=== PATIENT | female | born 1970 | race Caucasian/White ===

== ENCOUNTER 2018-10-14 15:20 | Inpatient (IN) | payer MEDICAID ==
[~2018-10-14] VITALS: Ht 157.5 cm; Wt 63.5 kg
[2018-10-14 15:21] VITALS: BP 200/130
[2018-10-14] MEDS ORDERED: MORPHINE SULFATE 4 MG/ML SYR IVP ONE (15:50)
[2018-10-14] MEDS ORDERED: ONDANSETRON 4 MG/2 ML VIAL IVP ONE (15:50)
[2018-10-14] MEDS ORDERED: NACL 0.9% 1,000 ML IV ONE (15:50)
[2018-10-14 15:54] LABS: BASOPHILS % (AUTO) 0.4 % (0.0-2.0); EOSINOPHILS # (AUTO) 0.2 K/uL (0-0.4); EOSINOPHILS % (AUTO) 2.4 % (0.0-4.0); HEMATOCRIT 44.3 % (36-48); HEMOGLOBIN 14.8 g/dL (12.0-16.0); LYMPHOCYTES # (AUTO) 2.7 K/uL (2.5-16.5); LYMPHOCYTES % (AUTO) 38.5 % (20.5-51.1); MEAN CORPUSCULAR HEMOGLOBIN 27 pg (27-31); MEAN CORPUSCULAR HGB CONC 33 g/dL (33-37); MEAN CORPUSCULAR VOLUME 81.9 fL (80-94); MONOCYTES # (AUTO) 0.5 K/uL (0.8-1.0); MONOCYTES % (AUTO) 6.6 % (1.7-9.3); NEUTROPHILS # (AUTO) 3.7 K/uL (1.8-7.7); NEUTROPHILS % (AUTO) 52.1 % (42.2-75.2); PLATELET COUNT (AUTO) 220 K/uL (140-450); RED BLOOD CELL COUNT(AUTO) 5.41 MIL/uL (4.20-5.40); WHITE BLOOD COUNT (AUTO) 7.1 K/uL (4.8-10.8)
--- NOTE | 2018-10-14 16:00 | NUR ---
48/F BIBA FROM HOME C/O POSSIBLE SYNCOPE, PT DOES NOT REMEMBER WHAT HAD HAPPENED TO HER. SHE WAS SEATED ON SOFA WHEN BECAME FAINT DIZZY.RIGHT UPPER WISDOM TOOTH REMOVED 2 DAYS AGO. HX--DENIES. DENIES N/V/D; SKIN IS PINK/WARM/DRY; AAOX4 WITH EVEN AND STEADY GAIT; LUNGS CLEAR BL. PT DENIES ANY FEVER, CP, SOB, OR COUGH AT THIS TIME; PATIENT STATES PAIN OF 0/10 AT THIS TIME. PATIENT POSITIONED FOR COMFORT; HOB ELEVATED; BEDRAILS UP X2; BED DOWN. ER MD MADE AWARE OF PT STATUS.
--- NOTE | 2018-10-14 16:12 | NUR ---
DAUGHTER AT BEDSIDE.
[2018-10-14 16:14] LABS: ALBUMIN 3.3 g/dL (3.4-5.0); ANION GAP 10.4 (8-16); CARBON DIOXIDE 27.9 mmol/L (21-32); CREATININE 0.8 mg/dL (0.6-1.3); POTASSIUM 3.3 mmol/L (3.5-5.1); TOTAL BILIRUBIN 0.3 mg/dL (0.0-1.0)
[2018-10-14 16:31] LABS: PROTHROMBIN TIME 9.4 secs (10.8-13.4)
[2018-10-14 16:51] LABS: APPEARANCE,URINE CLEAR (CLEAR); BILIRUBIN,URINE NEGATIVE (NEGATIVE); BLOOD, URINE 1+ (NEGATIVE); COLOR,URINE YELLOW (YELLOW); LEUKOCYTE ESTERASE ,URINE NEGATIVE (NEGATIVE); NITRITE, URINE NEGATIVE (NEGATIVE); PH,URINE 6.5 (5.0-9.0); UGLUCOSE 3+ (NEGATIVE)
[2018-10-14 17:05] LABS: RBC,URINE NONE SEEN /HPF (0-5); WBC,URINE NONE SEEN /HPF (0-5)
[2018-10-14] MEDS ORDERED: NACL 0.9% 500 ML IV ONE (17:25)
[2018-10-14] MEDS ORDERED: ONDANSETRON 4 MG/2 ML VIAL IM/IVP PRN (17:55)
[2018-10-14] MEDS ORDERED: KETOROLAC 15 MG/ML VIAL IVP PRN (17:55)
[2018-10-14] MEDS ORDERED: HYDROcodone/APAP 5/325 MG 1 TAB TAB PO PRN (17:55)
[2018-10-14] MEDS ORDERED: ACETAMINOPHEN 325 MG TAB PO PRN (17:55)
[2018-10-14] MEDS ORDERED: DEXTROSE 50% 50 ML SYR IVP PRN (17:55)
[2018-10-14] MEDS ORDERED: DOCUSATE SODIUM 100 MG GELCAP PO PRN (17:55)
--- NOTE | 2018-10-14 18:07 | NUR ---
Patient appears to be resting comfortably in bed. BP 175/113, P 1000. Respirations even and unlabored. NOTIFIED DR RODRIGUEZ. WILL CONTINUE TO MONITOR.
[2018-10-14] MEDS ORDERED: LABETALOL 100 MG/20 ML VIAL IVP ONE (18:10)
--- NOTE | 2018-10-14 18:56 | NUR ---
BP 159/106; HOLD TRANDATED PER DR RODRIGUEZ ORDERED.
--- NOTE | 2018-10-14 19:15 | NUR ---
Pt report given to JOSÉ MANUEL UMAÑA. Transfer of care at this time.
[2018-10-14 19:23] LABS: MAGNESIUM 1.8 mg/dL (1.8-2.4); THYROID STIMULATING HORMONE 2.36 uIU/mL (0.34-3.74)
[2018-10-14 19:25] LABS: BARBITURATE, URINE NEG. ng/ml (NEG <=200); BENZODIAZEPINE, URINE NEG. ng/mL (NEG <=200); CANNABINOID, URINE NEG. ng/mL (NEG <=50); COCAINE, URINE NEG. ng/mL (NEG <=300); OPIATE, URINE NEG. ng/mL (NEG <=2000); PHENCYCLIDINE SCREEN,URINE NEG. ng/mL (NEG <=25)
[2018-10-14 19:30] VITALS: BP 177/106
--- NOTE | 2018-10-14 19:30 | NUR ---
ADMITTED THIS 48 YEAR OLD FEMALE FROM ER PER CAROLYN WITH CC OF SYNCOPE, AMBULATED TO BED WITH STEADY GAIT, SLIGHT DIZZINESS NOTED, ASSESSMENT DONE, VITAL SIGNS TAKEN, BP ELEVATED, WILL NOTIFY DR SALDIVAR, ANISH4, ITALIAN SPEAKING ONLY, DAUGHTER AT BEDSIDE PREFER TO TRANSLATE, DENIES ANY PAIN AND NO SOB NOTED, ORIENTED TO ROOM AND CALL LIGHT, SAFETY MEASURES IN PLACE, CALL LIGHT WITHIN REACH.
[2018-10-14] MEDS: LABETALOL 20 MG/4 ML VIAL IVP SCH (20:30)
[2018-10-14] MEDS ORDERED: LABETALOL 100 MG/20 ML VIAL ONE (20:31)
[2018-10-14] MEDS: INSULIN LISPRO SLIDING SCALE 100 UNITS/ML VIAL SUBQ PRN (20:37)
[2018-10-14] MEDS: NACL 0.9% 1,000 ML IV SCH (20:37)
[2018-10-14] MEDS: BLOOD GLUCOSE MONITORING 1 DEV DEV FS SCH (20:38)
--- NOTE | 2018-10-14 20:39 | NUR ---
BP CHECKED-153/96, HR-91, DR SALDIVAR MADE AWARE, STATED TO HOLD LABETALOL AT THIS TIME, BLOOD SUGAR CHECKED WITH 276 RESULT, COVERAGE GIVEN, SNACK PROVIDED, ALL NEEDS ATTENDED.
[2018-10-14 20:40] VITALS: BP 153/96
[2018-10-14] MEDS ORDERED: POTASSIUM CHLORIDE 10 MEQ TABER PO SCH (21:30)
[2018-10-14] MEDS ORDERED: INFLUENZA VIRUS VACCINE QUAD 0.5 ML SYR IMVAC PRN (21:50)
[2018-10-15] VITALS (7 sets, daily range): BP systolic 128–174; BP diastolic 71–99
--- NOTE | 2018-10-15 | NUR ---
PT SLEEPING, EASILY AROUSABLE, VITAL SIGNS TAKEN, BP SLIGHTLY ELEVATED BUT TRENDING DOWN, DENIES PAIN, IVF INFUSING WELL, CONTINUE TO MONITOR CLOSELY.
--- NOTE | 2018-10-15 02:22 | NUR ---
PT AMBULATED TO BR WITH STEADY GAIT, VOIDED FREELY, DENIES DIZZINESS, MONITORED CLOSELY.
[2018-10-15] MEDS: NACL 0.9% 1,000 ML IV SCH ×2 (05:09→15:09)
[2018-10-15] MEDS: INSULIN LISPRO SLIDING SCALE 100 UNITS/ML VIAL SUBQ PRN ×4 (05:36→21:55)
--- NOTE | 2018-10-15 05:40 | NUR ---
BLOOD SUGAR CHECKED WITH 229 RESULT, COVERAGE GIVEN, NO DISTRESS NOTED, IVF INFUSING WELL, MONITORED CLOSELY.
[2018-10-15] MEDS: BLOOD GLUCOSE MONITORING 1 DEV DEV FS SCH ×4 (06:37→21:53)
--- NOTE | 2018-10-15 07:10 | NUR ---
PT SLEEPING, NO SIGNS OF DISTRESS, REPORT GIVEN TO LEEROY DUBOSE FOR CONTINUITY OF CARE.
--- NOTE | 2018-10-15 07:14 | NUR ---
RECEIVED BEDSIDE REPORT FROM PEDIATRIC OPHTHALMOLOGIST NURSE. PATIENT AAOX4. PATIENT ON ROOM AIR, NO SIGNS OF DISTRESS NOTED. PATIENT AMBULATORY AND CONTINENT. PATIENT ON TELE MONITOR. PATIENT ON STANDARD ISO. IV ON R AC 20 G INFUSING NS AT 100. IV CLEAN DRY AND INTACT. SKIN INTACT. BED IN LOW POSITION, CALL LIGHT WITHIN REACH. WILL CONTINUE TO MONITOR. DAUGHTER AT BEDSIDE.
[2018-10-15 07:22] LABS: BASOPHILS # (AUTO) 0.1 K/uL (0.00-0.22); BASOPHILS % (AUTO) 0.8 % (0.0-2.0); EOSINOPHILS # (AUTO) 0.2 K/uL (0-0.4); EOSINOPHILS % (AUTO) 3.5 % (0.0-4.0); HEMATOCRIT 40.1 % (36-48); HEMOGLOBIN 13.4 g/dL (12.0-16.0); LYMPHOCYTES # (AUTO) 2.6 K/uL (2.5-16.5); LYMPHOCYTES % (AUTO) 37.3 % (20.5-51.1); MEAN CORPUSCULAR HEMOGLOBIN 28 pg (27-31); MEAN CORPUSCULAR HGB CONC 33 g/dL (33-37); MONOCYTES # (AUTO) 0.5 K/uL (0.8-1.0); MONOCYTES % (AUTO) 6.5 % (1.7-9.3); NEUTROPHILS # (AUTO) 3.6 K/uL (1.8-7.7); NEUTROPHILS % (AUTO) 51.9 % (42.2-75.2); PLATELET COUNT (AUTO) 211 K/uL (140-450); RED BLOOD CELL COUNT(AUTO) 4.84 MIL/uL (4.20-5.40); RED CELL DISTRIBUTION WIDTH 12.8 % (11.6-13.7)
[2018-10-15 08:25] LABS: ANION GAP 12.3 (8-16); CARBON DIOXIDE 27.3 mmol/L (21-32); CREATININE 0.5 mg/dL (0.6-1.3); POTASSIUM 3.6 mmol/L (3.5-5.1)
[2018-10-15 08:43] LABS: CHOL/HDL RATIO 3.5 (1-4.5); MAGNESIUM 1.7 mg/dL (1.8-2.4); PHOSPHORUS 3.3 mg/dL (2.5-4.9)
--- NOTE | 2018-10-15 08:43 | NUR ---
PATIENT HAS BEEN SCREENED AND CATEGORIZED HIGH NUTRITION RISK. PATIENT WILL BE SEEN WITHIN 1-2 DAYS OF ADMISSION. 10/15/18-10/16/[address]
--- NOTE | 2018-10-15 10:00 | NUR ---
PATIENT SLEEPING. NO SIGNS OF RESPIRATORY DISTRESS, ON ROOM AIR. WILL CONTINUE TO MONITOR.
--- NOTE | 2018-10-15 10:33 | NUR ---
RECEIVED PT IN STABLE CONDITION FROM AM NURSE. AWAKE ,ALERT AND ORIENTED X4. [place] SPEAKING. WITH FAMILY MEMBERS AT BEDSIDE. PT STILL HAVING DINNER. ON TELE MONITOR. NO C/O ANY DISCOMFORT NOR PAIN NOTED. HAS IVF INFUSING WELL ON THE RT AC #20. CLEAR AND PATENT. PLAN OF CARE DISCUSSED AND VERBALIZED UNDERSTANDING. INSTRUCTED PT/FAMILY TO CALL AND USE CALL LIGHT FOR ASSISTANCE IF GETTING UP TO BATHROOM . WILL CONTINUE TO MONITOR. Addendum: 10/15/18 at 1956 by Racheal Allred RN CANCEL ABOVE NOTES.WRONG TIME.
--- NOTE | 2018-10-15 11:50 | NUR ---
ADMINISTERED PRN NORCO FOR PAIN OF 5/10. PATIENT TOLERATED WELL. WILL CONTINUE TO MONITOR.
--- NOTE | 2018-10-15 12:00 | NUR ---
CM NOTE CHART REVIEW DONE
[2018-10-15] MEDS ORDERED: METOPROLOL 25 MG TAB PO SCH (12:30)
--- NOTE | 2018-10-15 12:30 | NUR ---
PAGERosangela BUNN REGARDING CRITICAL TROPONIN LEVEL [phone]. WAITING FOR CALL BACK. Addendum: 10/15/18 at 1735 by Sheila Velasco RN WRONG PATIENT
--- NOTE | 2018-10-15 14:24 | NUR ---
FAMILY AT BEDSIDE. PATIENT SITTING UP IN BED. NO SIGNS OF DISTRESS NOTED, ON ROOM AIR. WILL CONTINUE TO MONITOR.
--- NOTE | 2018-10-15 14:46 | NUR ---
10/15/18 RD INITIAL ASSESSMENT COMPLETED PLEASE REFER TO NUTRITION ASSESSMENT UNDER CARE ACTIVITY FOR ESTIMATED NUTRITIONAL NEEDS. 1. CONTINUE CCHO 60 GM AND CARDIAC DIET TOLERATED 2. RD PROVIDED NUTRITION EDUCATION ON DIABETES, INCLUDING DISEASE PROCESS, FOOD GROUPS, CARBOHYDRATE COUNTING, AND CREATING BALANCED MEALS. PT ACCEPTED EDUCATION. 3. RD TO FOLLOW-UP 3-5 DAYS, MODERATE RISK MAGDIEL CANO RD
--- NOTE | 2018-10-15 16:15 | NUR ---
ADMINISTERED 6 UNITS HUMALOG PER SLIDING SCALE FOR BLOOD SUGAR 289. PATIENT TOLERATED WELL. WILL CONTINUE TO MONITOR.
[2018-10-15] MEDS ORDERED: MECLIZINE 25 MG TAB PO PRN (17:15)
[2018-10-15] MEDS ORDERED: MAGNESIUM OXIDE 400 MG TAB PO SCH (17:32)
--- NOTE | 2018-10-15 18:15 | NUR ---
EEG AT BEDSIDE. JOSÉ MANUEL TRANSLATED TO PATIENT EXPLANATION OF PROCEDURE. ANSWERED ALL QUESTIONS AND CONCERNS.
--- NOTE | 2018-10-15 19:32 | NUR ---
GAVE BEDSIDE REPORT TO DOWELER NURSE. PATIENT ENDORSED IN STABLE CONDITION.
--- NOTE | 2018-10-15 19:33 | NUR ---
RECEIVED PT IN STABLE CONDITION FROM AM NURSE. AWAKE ,ALERT AND ORIENTED X4. OCCITAN SPEAKING. WITH FAMILY MEMBERS AT BEDSIDE. PT STILL HAVING DINNER. ON TELE MONITOR. NO C/O ANY DISCOMFORT NOR PAIN NOTED. HAS IVF INFUSING WELL ON THE RT AC #20. CLEAR AND PATENT. PLAN OF CARE DISCUSSED AND VERBALIZED UNDERSTANDING. INSTRUCTED PT/FAMILY TO CALL AND USE CALL LIGHT FOR ASSISTANCE IF GETTING UP TO BATHROOM . WILL CONTINUE TO MONITOR.
--- NOTE | 2018-10-15 20:42 | NUR ---
TALKED TO DR. SALDIVAR, MADE AWARE OF THE PT BLOOD PRESSURE 152/84. HE SIAD NOT TO GIVE TRANDATE IV FOR NOW. OK JUST TO GIVE THE LOPRESSOR DUE AT 2100.
[2018-10-15] MEDS: METOPROLOL 25 MG TAB PO SCH (20:49)
--- NOTE | 2018-10-15 21:55 | NUR ---
BLOOD SUGAR WAS CHECKED RESULT 336. PT ALREADY HAD HER SNACK BEFORE CHECKING THE BLOOD SUGAR. INSULIN COVERAGE SUBQ GIVEN ORDERED. WILL CONTINUE TO MONITOR.
--- NOTE | 2018-10-15 23:30 | NUR ---
BP ELEVATED 174/95. DR. SALDIVAR ,RESIDENT MD MADE AWARE. OK TO GIVE THE TRANDATE 20MG IVP ONCE THAT WAS ON HOLD EARLIER AT 2029.
[2018-10-15] MEDS ORDERED: LABETALOL 100 MG/20 ML VIAL ONE (23:35)
[2018-10-15] MEDS: LABETALOL 20 MG/4 ML VIAL IVP SCH (23:38)
--- NOTE | 2018-10-16 00:30 | NUR ---
ASLEEP. NO S/S FO ANY DISCOMFORT NOTED. WILL CONTINUE TO MONITOR.
--- NOTE | 2018-10-16 02:30 | NUR ---
MADE ROUNDS. PT IS ASLEEP. NO S/S OF ANY DISCOMFORT NOTED.
[2018-10-16 04:00] VITALS: BP 164/98
--- NOTE | 2018-10-16 04:01 | NUR ---
BP AFTER THE TRANDATE IVP WAS 166/96, THEN RECHECKED AT THIS TIME. 164/98. PT ASYMPTOMATIC . NO HEADACHE NOR DIZZINESS NOTED. DR. SALDIVAR,RESIDENT MD MADE AWARE. WILL DO SOME ADJUSTMENT /CHANGES ON ORDERS.
[2018-10-16] MEDS ORDERED: ENALAPRILAT 2.5 MG/2 ML VIAL IVP SCH (04:15)
--- NOTE | 2018-10-16 04:38 | NUR ---
VASOTEC 2.5 MG IVP GIVEN ORDERED ONCE FOR BP 164/98. WILL CONTINUE TO MONITOR . REASSESSMENT @6720
--- NOTE | 2018-10-16 05:38 | NUR ---
LATEST BP 153/93/, HR-61 PT NO C/O ANY PAIN NOR DISCOMFORT NOTED.
[2018-10-16 06:00] LABS: BASOPHILS % (AUTO) 0.5 % (0.0-2.0); EOSINOPHILS # (AUTO) 0.2 K/uL (0-0.4); EOSINOPHILS % (AUTO) 3.1 % (0.0-4.0); HEMATOCRIT 41.1 % (36-48); HEMOGLOBIN 13.6 g/dL (12.0-16.0); LYMPHOCYTES # (AUTO) 2.7 K/uL (2.5-16.5); LYMPHOCYTES % (AUTO) 38.5 % (20.5-51.1); MEAN CORPUSCULAR HEMOGLOBIN 27 pg (27-31); MEAN CORPUSCULAR HGB CONC 33 g/dL (33-37); MEAN CORPUSCULAR VOLUME 82.5 fL (80-94); MONOCYTES # (AUTO) 0.5 K/uL (0.8-1.0); MONOCYTES % (AUTO) 7.3 % (1.7-9.3); NEUTROPHILS # (AUTO) 3.6 K/uL (1.8-7.7); NEUTROPHILS % (AUTO) 50.6 % (42.2-75.2); PLATELET COUNT (AUTO) 232 K/uL (140-450); RED BLOOD CELL COUNT(AUTO) 4.98 MIL/uL (4.20-5.40); RED CELL DISTRIBUTION WIDTH 12.9 % (11.6-13.7)
[2018-10-16] MEDS: NACL 0.9% 1,000 ML IV SCH ×2 (06:01→11:46)
[2018-10-16] MEDS: BLOOD GLUCOSE MONITORING 1 DEV DEV FS SCH ×2 (06:05→11:30)
[2018-10-16] MEDS: INSULIN LISPRO SLIDING SCALE 100 UNITS/ML VIAL SUBQ PRN ×2 (06:06→12:40)
--- NOTE | 2018-10-16 06:06 | NUR ---
BLOOD SUGAR THIS AM 246. INSULIN COVERAGE SUBQ GIVEN ORDERED.
--- NOTE | 2018-10-16 07:20 | NUR ---
ENDORSED PT IN STABLE CONDITION TO AM NURSE.
--- NOTE | 2018-10-16 07:25 | NUR ---
RECEIVED BEDSIDE REPORT FROM AUTOMATION SOFTWARE ENGINEER RN. PT IN STABLE CONDITION. AOX4. UZBEK SPEAKING. DENIES PAIN AND DISCOMFORT. VITALS STABLE. PT ON TELE. SKIN INTACT. RESPIRATIONS EVEN AND UNLABORED. HEART RHYTHM REGULAR. IV SITE PATENT AND ASYMPTOMATIC, INFUSING IVF PER MD ORDERS. PT AMBULATORY WITH ASSIST. ALL SAFETY PRECAUTIONS IN PLACE, WILL CONTINUE TO MONITOR.
[2018-10-16 08:00] VITALS: BP 130/79
[2018-10-16] MEDS ORDERED: metFORMIN 500 MG TAB PO SCH (08:00)
--- NOTE | 2018-10-16 08:28 | NUR ---
FNS CONSULT RECEIVED FOR DIABETES EDUCATION. FACUNDO PROVIDED EDUCATION ON 10/15/18. MAGDIEL CANO RD
[2018-10-16 08:35] LABS: MAGNESIUM 1.9 mg/dL (1.8-2.4); PHOSPHORUS 4.3 mg/dL (2.5-4.9)
[2018-10-16] MEDS: METOPROLOL 25 MG TAB PO SCH (08:36)
--- NOTE | 2018-10-16 08:38 | NUR ---
PT SITTING IN BED, EATING BREAKFAST. SCHEDULED 0800 AND 0900 MEDICATIONS ADMINISTERED. NO C/O PAIN OR DISCOMFORT.
[2018-10-16 08:39] LABS: CARBON DIOXIDE 28.6 mmol/L (21-32); CREATININE 0.5 mg/dL (0.6-1.3); POTASSIUM 3.6 mmol/L (3.5-5.1)
[2018-10-16] MEDS ORDERED: amLODIPine 5 MG TAB PO SCH (09:00)
--- NOTE | 2018-10-16 10:23 | NUR ---
PT RESTING IN BED, WITH FAMILY MEMBERS AT BEDSIDE. NO C/O PAIN OR DISCOMFORT. DENIES DIZZINESS. ALL SAFETY PRECAUTIONS IN PLACE, WILL CONTINUE TO MONITOR.
--- NOTE | 2018-10-16 11:21 | NUR ---
PT INQUIRING ABOUT DISCHARGE TIME. INFORMED PT THAT THERE IS NO ORDER FOR D/C YET BUT THERE IS PLAN FOR POSSIBLE D/C TODAY. PT VERBALIZED COMPLETE UNDERSTANDING.
--- NOTE | 2018-10-16 12:40 | NUR ---
ADMINISTERED 6 UNITS HUMALOG FOR BLOOD GLUCOSE 282 MG/DL.
--- NOTE | 2018-10-16 14:29 | NUR ---
PT SLEEPING IN BED, AROUSABLE BY VOICE. ALL SAFETY PRECAUTIONS IN PLACE, WILL CONTINUE TO MONITOR.
[2018-10-16] MEDS ORDERED: METO25TA PO (15:26)
[2018-10-16] MEDS ORDERED: GLUC-805 FS (15:26)
[2018-10-16] MEDS ORDERED: AMLO5TAB4 PO (15:26)
[2018-10-16] MEDS ORDERED: METF500T PO (15:26)
[2018-10-16] MEDS ORDERED: HUMSLIDE SUBQ (15:26)
[2018-10-16] MEDS ORDERED: AMOX500C25 PO (15:29)
[2018-10-16] MEDS ORDERED: AMOX250P30 PO (15:59)
--- NOTE | 2018-10-16 16:45 | NUR ---
DISCHARGE PAPERWORK, INCLUDING NEW RX AND INSTRUCTIONS TO F/U WITH CLINIC (APPT DETAILS PROVIDED), GIVEN TO PT AND FAMILY MEMBER AT BEDSIDE. PT IS BULGARIAN SPEAKING BUT PREFERS FAMILY MEMBER AT BEDSIDE TO TRANSLATE. DR. HINTON HAS ALREADY GIVEN EDUCATION ON BLOOD GLUCOSE CHECKS AND INSULIN REGIMEN EARLIER TODAY. REINFORCED THIS INFORMATION DURING D/C TEACHING. ADMINISTERED FLU VACCINE. PT REFUSED PNEUMOVAX. FLU VACCINE TEACHING AND VACCINE DECLINATION TEACHING GIVEN. PT VERBALIZED COMPLETE UNDERSTANDING OF ALL D/C TEACHING. IV SITE REMOVED WITH MINIMAL BLOOD LOSS AND LUMEN COMPLETELY INTACT. ID BANDS REMOVED. PT LEFT FOR HOME WITH FAMILY MEMBERS AT BEDSIDE.
== END 2018-10-16 16:45 | disposition home or self-care (01) | DRG 48 ==
LOC: MED 15:20 → MTU 17:58
PROVIDERS: ADMIT General Practice; ATTEND General Practice
PROC: 4A00X4Z Measurement of Central Nervous Electrical Activity, External Approach (ICD-10-PCS; principal; 2018-10-16)
PROC: 3E02340 Introduction of Influenza Vaccine into Muscle, Percutaneous Approach (ICD-10-PCS; 2018-10-16)
DX: G90.8 Other disorders of autonomic nervous system (principal); E11.65 Type 2 diabetes mellitus with hyperglycemia; E87.1 Hypo-osmolality and hyponatremia; I16.1 Hypertensive emergency; J01.00 Acute maxillary sinusitis, unspecified; E87.6 Hypokalemia; E86.0 Dehydration; E44.1 Mild protein-calorie malnutrition; E83.42 Hypomagnesemia; I10 Essential (primary) hypertension; E66.3 Overweight; Z68.25 Body mass index [BMI] 25.0-25.9, adult; Z98.51 Tubal ligation status; Z82.49 Family history of ischemic heart disease and other diseases of the circulatory system; Z23 Encounter for immunization
CPT/HCPCS: 36415; 70450; 71045; 80048; 80053; 80305; 81001; 82150; 82948; 83036; 83690; 83735; 83880; 84100; 84443; 84484; 85025; 85610; 87040; 87081; 90658; 93005; 93880; 95816; 96361; 96374; 96375; 97535; 99285; J0696; J1815; J2270; J2405; J3490; J7030; J7060; Q0092